=== PATIENT | female | born 1995 | race Caucasian/White ===

== ENCOUNTER 2024-01-09 20:22 | Emergency (ER) | payer OTHER, SELFPAY | END 2024-01-09 21:14 | disposition home or self-care (01) | LOC: ERS 20:22 | DX: S61.215A Laceration without foreign body of left ring finger without damage to nail, initial encounter (principal); F17.290 Nicotine dependence, other tobacco product, uncomplicated; W26.0XXA Contact with knife, initial encounter | CPT/HCPCS: 12001; 99282 ==